=== PATIENT | male | born 1965 | race Caucasian/White ===

== ENCOUNTER → 2023-09-25 07:36 | Outpatient (REF) | payer BC, SELFPAY | LOC: RAD 07:36 | PROVIDERS: ATTENDING PHYSICIAN Physician Assistant Medical | DX: M25.512 Pain in left shoulder (principal) | CPT/HCPCS: 73030 ==

== ENCOUNTER 2025-03-29 06:33 | Day surgery (SDC) | payer BC, SELFPAY | END 2025-03-29 10:10 | disposition home or self-care (01) | LOC: GI 06:33 | PROVIDERS: ATTENDING PHYSICIAN Internal Medicine Gastroenterology | DX: Z12.11 Encounter for screening for malignant neoplasm of colon (principal); K57.30 Diverticulosis of large intestine without perforation or abscess without bleeding; K64.8 Other hemorrhoids; Z86.0100 Personal history of colon polyps, unspecified | CPT/HCPCS: G0105 ==